=== PATIENT | male | born 1960 | race Caucasian/White ===

== ENCOUNTER 2020-02-10 07:13 | Outpatient (CLI) | payer OTHER, SELFPAY ==
[2020-02-10 08:27] LABS: LDL Cholesterol Direct 91 mg/dL
[2020-02-10 08:43] LABS: Hemoglobin A1C 11.4 % (<5.7)
[2020-02-10 08:50] LABS: Alanine Aminotransferase 26 U/L (4-50); Albumin Level 3.8 g/dL (3.5-5.1); Alkaline Phosphatase 124 U/L (38-126); Aspartate Amino Transferase 21 U/L (17-59); Bilirubin,Total 0.4 mg/dL (0.2-1.3); Blood Urea Nitrogen 14 mg/dL (9-20); Calcium 8.5 mg/dL (8.4-10.2); Carbon Dioxide 25 mmol/L (22-30); Chloride 103 mmol/L (98-107); Cholesterol 236 mg/dL (0-200); Estimated Glomerular Filt Rate > 60; Glucose 239 mg/dL (75-110); HDL Direct 27 mg/dL; Potassium 4.3 mmol/L (3.4-5.0); Sodium 135 mmol/L (137-145)
[2020-02-10 09:11] LABS: Triglycerides 668 mg/dL (<150)
== END 2020-02-10 07:14 | disposition home or self-care (01) ==
LOC: ANHLAB 07:15
PROVIDERS: PCP Emergency Medicine; Visit Provider Emergency Medicine
DX: E78.5 Hyperlipidemia, unspecified (principal); E11.9 Type 2 diabetes mellitus without complications
CPT/HCPCS: 36415; 80053; 80061; 83036

== ENCOUNTER 2020-04-06 07:25 | Outpatient (CLI) | payer OTHER, SELFPAY ==
[2020-04-06 10:08] LABS: Hemoglobin A1C 8.6 % (<5.7)
== END 2020-04-06 07:26 | disposition home or self-care (01) ==
PROVIDERS: PCP Emergency Medicine; Visit Provider Emergency Medicine
DX: E11.9 Type 2 diabetes mellitus without complications (principal)
CPT/HCPCS: 36415; 83036

== ENCOUNTER 2020-05-11 13:51 | Emergency (ER) | payer OTHER, SELFPAY ==
[2020-05-11 14:03] VITALS: BP 141/67; PULSE 120; RESP 16; TEMP 38; O2SAT 96
--- NOTE | 2020-05-11 14:13 | ED.SKABFB ---
HPI - Skin/Abscess/Foreign Bdy General Chief complaint: Skin/Abscess/Foreign Body Stated complaint: Boil in groin Time Seen by Provider: 05/11/20 14:13 Source: patient Mode of arrival: ambulatory Limitations: no limitations History of Present Illness HPI narrative: Lew Truong is a 60 yo male with a PMH of HTN, diabetes, tobacco abuse, who comes to [facility] care with a 100.4 , tachycardia, and blood pressure of 141/67. He has a very enlarged scrotum that is erythematous and tender, he is uncircumcised. Started on Wednesday and has gotten progressively more tender. Checked his blood sugar and days and he is barely able to sit down without pain Related Data Home Medications Medication Instructions Recorded Confirmed amlodipine 10 mg tablet 10 mg PO DAILY 07/14/19 05/11/20 aspirin 81 mg chewable tablet 81 mg PO DAILY 07/14/19 05/11/20 Allergies Allergy/AdvReac Type Severity Reaction Status Date / Time No Known Allergies Allergy Unverified 05/11/20 13:57 Review of Systems Review of Systems: Narrative: CONSTITUTIONAL: Has fever, chills, no sweats. EYES: Denies visual changes, redness, discharge. ENT: Denies rhinorrhea, congestion, sore throat, otalgia. CARDIOVASCULAR: Denies chest pain, palpitations, edema. RESPIRATORY: Denies dyspnea, wheezing, cough GASTROINTESTINAL: Denies abdominal pain, nausea, vomiting, diarrhea. GENITOURINARY: Denies dysuria, hematuria, abnormal discharge SKIN: Denies rash or itching. Enlarged painful scrotum, hard to sit down NEUROLOGIC: Denies numbness, or focal weakness. PSYCHIATRIC: Denies anxiety or depression. [facility] Past Medical History Medical History Diabetes mellitus HTN (hypertension) Hyperlipidemia Family History Family History Father Acute myocardial infarction Patient's father is , Onset Age: 68 Mother Patient's mother is , Onset Age: 84 Other Diabetes mellitus Social History Social History Smoking status: Heavy tobacco smoker Alcohol intake: never Comments At time of signature, I agree with nursing past medical, surgical, social and family history. There is no relevant family history pertinent to the presenting complaint. Exam Narrative: Exam Narrative: GENERAL: This is a well-nourished, well-developed patient, inmoderate distress. HEAD: normocephalic, atraumatic. EYES: Sclera clear/white. Vision is grossly intact. EARS: External ears normal, Hearing grossly intact. NOSE: External nose normal without nasal discharge, nares without redness, no rhinorrhea. THROAT: Mucous membranes moist, NECK: Neck supple, non-tender CARDIOVASCULAR: Regular rate and rhythm without murmurs, gallops, or rubs. RESPIRATORY: Clear to auscultation. Breath sounds equal bilaterally. No wheezes, rales, or rhonchi. GASTROINTESTINAL: Abdomen soft, non-tender, SKIN: warm, intact . Has very enlarged scrotum which is very painful to touch with left-sided hardened abscess-like area that runs up into the left inguinal area he is uncircumcised. NEURO: awake, alert, and oriented to person, place and time. There were no obvious focal neurologic abnormalities. Steady gait EXTREMITIES: Normal range of motion. BACK: Nontender without deformity Course Course Emergency Course: Comes to express care with scrotal pain On examination he is exquisitely tender warm to touch a lot of swelling on the left side of the scrotum and up in the inguinal area patient needs work-up with CT/ultrasound/blood work/IV antibiotics Transferred to [facility] Vital Signs Vital signs: Vital Signs Temperature 100.4 F H 05/11/20 14:03 Pulse Rate 120 H 05/11/20 14:03 Respiratory Rate 16 05/11/20 14:03 Blood Pressure 141/67 H 05/11/20 14:03 Pulse Oximetry 96 05/11/20 14:03 Temperature 1
== END 2020-05-11 14:25 | disposition short-term general hospital (02) ==
PROVIDERS: Emergency Provider Nurse Practitioner; PCP Emergency Medicine
DX: N49.2 Inflammatory disorders of scrotum (principal); F17.200 Nicotine dependence, unspecified, uncomplicated; E11.9 Type 2 diabetes mellitus without complications; I10 Essential (primary) hypertension; E78.5 Hyperlipidemia, unspecified
CPT/HCPCS: 99212; G0463

== ENCOUNTER 2020-05-11 14:39 | Inpatient (IN) | payer OTHER, SELFPAY ==
--- NOTE | ~2020-05-11 | CT_ITS ---
EXAMINATION: CT pelvis w con DATE: 05/11/2020 17:46 INDICATION: Scrotal edema, erythema TECHNIQUE: Computed tomography (CT) of the pelvis was performed with 100 cc Omnipaque 350 intravenous contrast. Automated exposure control and iterative reconstruction technique were employed. Exam dose : 1171.99 mGy-cm total exam DLP. COMPARISON: 02/23/2017 CT abdomen pelvis FINDINGS: Again noted is a wide ventral abdominal wall hernia containing nonobstructed nonstrangulate d small bowel. Diverticulosis of the descending and sigmoid colon; no CT evidence of diverticulitis. The urinary manpreet dder, seminal vesicles are unremarkable. Mild calcification of the prostate gland. There is some fluid density and fat stranding in the left pubic area, which may represent infection. Clinical correlation is advised. No pelvic mass lesion or adenopathy or ascites is noted. IMPRESSION: Nonspecific edema and fat stranding of the left pubic area Chronic wide mouth ventral abdominal wall hernia containing nonobstructed nonstrangulated small bowel Diverticulosis of the colon Reviewed, dictated and finalized at [facility] Reviewed, dictated and finalized at [facility]. IMPRESSION: Nonspecific edema and fat stranding of the left pubic area Chronic wide mouth ventral abdominal wall hernia containing nonobstructed nonst rangulated small bowel Diverticulosis of the colon
[2020-05-11 14:55] VITALS: BP 137/67; PULSE 120; RESP 24; TEMP 38.2; O2SAT 95
[2020-05-11 16:29] LABS: Hematocrit 39.4 % (42.0-52.0); Hemoglobin 13.3 g/dL (14.0-18.0); Mean Corpuscular HGB Conc 33.8 g/dl (32-36); Mean Corpuscular Hemoglobin 30.5 pg (26-34); Mean Corpuscular Volume 90.4 fl (80-100); Mean Platelet Volume 9.7 fl (7.4-10.4); Platelet Count Result 322 k/mm3 (150-375); Red Blood Count 4.36 M/mm3 (4.6-6.20); Red Cell Distribution Width 12.3 % (11.5-14.5); White Blood Count 23.1 K/mm3 (4.5-10.0)
--- NOTE | 2020-05-11 16:34 | ED.WOUNDLAC ---
HPI - Wound/Laceration General Chief Complaint: Wound/Laceration Stated Complaint: fever and wound in l groin Time Seen by Provider: 05/11/20 16:18 Source: patient Mode of arrival: ambulatory Limitations: no limitations History of Present Illness HPI narrative: This is a 60 year old male that presents to the ER for scrotal swelling x 3 days. Reports pain and redness to the area. He was seen at the urgent care for this and sent here for further evaluation. Also reports fever. Denies abdominal pain, dysuria, nausea, or vomiting. Related Data Home Medications Medication Instructions Recorded Confirmed amlodipine 10 mg tablet 10 mg PO DAILY 07/14/19 05/11/20 aspirin 81 mg chewable tablet 81 mg PO DAILY 07/14/19 05/11/20 metformin 1,000 mg PO BID 05/11/20 05/11/20 semaglutide [Ozempic] 0.5 mg SUBCUT WEEKLY 05/11/20 05/11/20 Allergies Allergy/AdvReac Type Severity Reaction Status Date / Time No Known Allergies Allergy Verified 05/11/20 16:11 Review of Systems Review of Systems: Narrative: CONSTITUTIONAL: Reports fever GASTROINTESTINAL: Denies abdominal pain, nausea, vomiting GENITOURINARY: Denies dysuria or hematuria. SKIN: Reports edema and erythema All systems reviewed & are unremarkable except as noted in HPI and below PMFSH Past Medical History Medical History (Updated 05/11/20 @ 23:06 by Tatum Perry PA-C) Diabetes mellitus HTN (hypertension) Hyperlipidemia Obstructive sleep apnea Tobacco abuse Surgical History Surgical History (Updated 05/11/20 @ 22:39 by Amparo Ryan NP) H/O inguinal hernia repair Hx of cholecystectomy Family History Family History (Updated 05/11/20 @ 22:41 by Amparo Ryan NP) Father Acute myocardial infarction Patient's father is , Onset Age: 68 Mother Patient's mother is , Onset Age: 84 when I asked a question about his mother's history the patient got very upset with me and asked me why We need to ask about his family history and that we did not need to bring his mother into this. In that his mother has nothing to do with his current condition. I had a very difficult time getting a family history from the patient. I explained was part of the history and physical. 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 And his is a durable power attorney lawyer. He does live with his . Patient was very agitated with me and did not want to answer the rest of the questions because he stated that he had already told staff about his social history in that I did need to know any further about it. Who was agitated that I was asking some questions and that it was not a my business. I explained again that it was for his history and physical. He explained that he had gone through all these questions already knees not going through it again at this time a night. Elizabeth is listed as his durable power attorney lawyer for healthcare and that his his . She is listed as the next of kin. I was not able to ask him about his alcohol use or if he had any children. Smoking packs per day: 1.5 Smoking cigarettes per day: 30.0 Years smoked: 40 Smoking pack-years: 60.00 Smoking status: Current every day smoker Tobacco type: cigarettes Alcohol intake: current Substance use: never Living arrangements: with family Occupation/Education: occupation Gender identity (if verbalized by the patient): Male Sexual Orientation (if Verbalized by the Patient): Straight or Heterosexual Spiritual care concerns: No Exam Narrative: Exam Narrative: GENERAL: Well-appearing, obese, and in no acute distress. HEAD: Normocephalic, atraumatic. EYES: EOMI. CHEST: Clear to auscultation. No respiratory distress. No wheezes rales or rhonchi HEART: Regular
[2020-05-11 16:40] LABS: Lactic Acid Reflex 1.5 mmol/L (0.7-2.1)
[2020-05-11 16:44] LABS: INR 1.2; Prothrombin Time 14.4 Seconds (11.1-14.7)
[2020-05-11 16:45] LABS: Partial Thromboplastin Time 30.3 SECONDS (22.3-36.8)
[2020-05-11 17:01] LABS: Alanine Aminotransferase 30 U/L (4-50); Albumin Level 3.5 g/dL (3.5-5.1); Alkaline Phosphatase 121 U/L (38-126); Anion Gap 9 mmol/L (8-16); Aspartate Amino Transferase 22 U/L (17-59); Band Neutrophils Percent 2 % (0-6); Bilirubin,Total 0.5 mg/dL (0.2-1.3); Blood Urea Nitrogen 13 mg/dL (9-20); Calcium 8.7 mg/dL (8.4-10.2); Carbon Dioxide 24 mmol/L (22-30); Chloride 101 mmol/L (98-107); Estimated CRCL calculation 133 ml/min; Estimated Glomerular Filt Rate > 60; Glucose 200 mg/dL (75-110); Lymphocytes Absolute Manual 4.38 K/mm3 (1.1-4.5); Monocytes Absolute Manual 1.38 K/mm3 (0.1-0.90); Monocytes Percent Manual 6 % (3-9); Neutrophils Absolute Manual 17.32 K/mm3 (1.3-6.7); Neutrophils Percent Manual 73 % (46-73); Sodium 134 mmol/L (137-145); Total Cells Counted 100
[2020-05-11 17:02] LABS: Anisocytosis 1+ (NORMAL); Platelet Estimate Adequate (Adequate)
[2020-05-11 17:14] LABS: Hemoglobin A1C 9.1 % (<5.7)
[2020-05-11] MEDS: SODIUM CHLORIDE 0.9% IV 1,000 ML 999 ML IV CONT (17:22)
[2020-05-11 17:48] LABS: CRP 16.2 mg/dL (<1.0)
[2020-05-11 18:33] VITALS: BP 126/73; PULSE 100; RESP 20; TEMP 37.7; O2SAT 95
[2020-05-11 20:12] VITALS: BP 126/74; PULSE 92; RESP 20; TEMP 36.9; O2SAT 97
[2020-05-11 20:16] VITALS: BP 126/74; PULSE 95; RESP 20; TEMP 36.6; O2SAT 96
[2020-05-11 20:29] VITALS: BMI 42.9
--- NOTE | 2020-05-11 20:30 | ADMGEN ---
This patient, Lew Truong, was admitted to Medical Room 342-01. Patient/family oriented to hospital policies and general routines including ID bracelet, bed and alarms, visiting hours, pain management, procedures, bathroom and other care routines, personal items, smoking policy, room service/diet, and visiting hours. Valuables list has been completed. Information on how to activate the Rapid Response Team has been discussed. Patient/Family are encouraged to report perceived risks to care and to ask questions if they do not understand what they are told or what they should do.
[2020-05-11 20:34] VITALS: BP 127/86; PULSE 94; RESP 18; TEMP 36.4; O2SAT 94
[2020-05-11 21:26] LABS: Glucose Point of Care 191 (65-105)
--- NOTE | 2020-05-11 22:15 | PM.IMHP ---
H&P: HPI History of Present Illness Date/Time: 05/11/20 22:15 Chief complaint: Scrotal cellulitis Narrative: Lew Truong is a 60 year old male who has been having scrotal pain redness and edema for approximately 3 days. 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 He has not had anything like this in the past. There is a lot of pressure there and he did not notice any drainage. He has not tried anything [id number]. He said he is having some chills. Patient's temperature was up to 38.2? C. which is 100.8? degrees F. the patient had nonspecific edema and fat stranding a left pubic area. Chronic wide-mouth ventral abdominal wall hernia containing nonobstructive non strangulated small bowel. Diverticulosis of the colon. He has mild calcification of the prostate gland. The patient was started on vancomycin. He is diabetic. His white count was noted to be 23.1. His H&H is 13.3 and 39.4. The patient was very irritated with me and was very upset that I was reviewing this his chart with him. He is not feeling well and has chills. The patient stated the ER told him that he would only be staying overnight. I explained that he is admitted inpatient and that this would take longer to heal and that he needs IV antibiotics at this time. The patient tells me that if he is not released by tomorrow he will walk out on his own. I explained that he can become very septic and from sepsis. The patient stated that he has been like to and he is upset with all the medical helped personal caregiver. He does not understand why he has to be asked so many questions and it is none of our business what his family history is. I attempted to review his history and physical and explained my rationale for doing this history and physical. The patient was very upset that I had to ask him so many questions. He stated that he has signed out against medical advice in the past and has threatened to do so now. The patient is very upset with me at this point. Patient's heart rate is in the 90s and his blood pressure is 127 over to 86 and he has a elevated leukocytosis which fits the criteria for sepsis. Patient stated that he does not care that he is leaving tomorrow regardless. I explained that I could not promise him that he would be able to leave because he has sepsis and is very ill. Patient stated that he does not know what his family history has to do with any of his paperwork and does not understand why he has to talk about his parents at this time of the night. Patient was very irritated and agitated. Date of service 05/11/2020. Review of Systems Review of Systems: Narrative: The patient is very irritated and does not want to answer questions at this time the night. All systems reviewed & are unremarkable except as noted in HPI and below Constitutional: Constitutional: Reports as per HPI and Reports no additional constitutional complaints Eyes: Eyes: Reports as per HPI and Reports no additional eye complaints ENT: Reports system reviewed and no additional complaints, except as documented and Reports Normal hearing present Cardiovascular: Cardiovascular: Reports no additional cardiovascular complaints Respiratory: Respiratory: Reports no additional respiratory complaints and Reports no additional respiratory complaints Gastrointestinal: Gastrointestinal: Reports as per HPI and Reports no additional gastrointestinal complaints Musculoskeletal: Musculoskeletal: Reports no additional musculoskeletal complaints Integumentary/Breasts: Skin/Breast: Reports system reviewed and no additional complaints, except as docu and Reports as per HPI Neurologic: Reports system reviewed and no additional complaints, except as documented, Reports as per HPI and Reports Normal hearing present Psychiatric: Psychiatric: Reports no additional psychiatric complaints and Reports as per HPI Endocrine: Endocrine:
[2020-05-11 22:25] VITALS: RESP 20
[2020-05-11] MEDS: MELATONIN 3 MG TABLET PO (23:14)
[2020-05-11 23:26] LABS: Add Urine Microscopic? YES; Appearance Urine Clear (Clear); Bacteria Urine Trace /hpf; Bilirubin Urine Negative (Negative); Blood Urine 1+ (Negative); Color Urine Yellow (Yellow); Glucose Urine UA 2+ mg/dL (Negative); Ketones Urine Negative (Negative); Leukocyte Esterase Ur Negative LEU/UL (Negative); Mucus Urine Rare /lpf; Nitrate Urine Negative (Negative); Protein Urine Negative (Negative); RBC Urine 0-2 /hpf (0-2); Urobilinogen Urine Negative mg/dL (<2.0); WBC Urine 0-3 /hpf
[2020-05-11 23:30] LABS: Specific Grav Ur 1.032 (1.001-1.035)
[2020-05-12] VITALS (12 sets, daily range): BP systolic 111–139; BP diastolic 50–79; PULSE 90–102; RESP 14–20; TEMP 35.7–37.2; O2SAT 94–97
[2020-05-12] MEDS: HYDROcodone/acetaminophen (*CRX) 5-325 MG TABLET 1 TAB PO (03:13)
[2020-05-12 05:33] LABS: Basophils Absolute Auto 0.1 K/mm3 (0.0-0.1); Basophils Percent Auto 0.3 % (0.2-1.2); Eosinophils Absolute Auto 0.1 K/mm3 (0-0.3); Eosinophils Percent Auto 0.5 % (0-4.4); Hematocrit 36.5 % (42.0-52.0); Hemoglobin 12.3 g/dL (14.0-18.0); Immature Granulocyte Absolute 0.15 K/mm3 (0.00-0.031); Immature Granulocyte Percent A 0.8 % (0-0.5); Lymphocytes Absolute Auto 3.45 K/mm3 (0.9-3.2); Lymphocytes Percent Auto 17.6 % (18.3-44.2); Mean Corpuscular HGB Conc 33.7 g/dl (32-36); Mean Corpuscular Hemoglobin 30.9 pg (26-34); Mean Corpuscular Volume 91.7 fl (80-100); Mean Platelet Volume 10.3 fl (7.4-10.4); Monocytes Absolute Auto 1.9 K/mm3 (0.1-0.6); Monocytes Percent Auto 9.4 % (2.6-8.5); Neutrophils Percent Auto 71.4 % (45.5-73.1); Platelet Count Result 314 k/mm3 (150-375); Red Blood Count 3.98 M/mm3 (4.6-6.20); Red Cell Distribution Width 12.5 % (11.5-14.5); White Blood Count 19.6 K/mm3 (4.5-10.0)
[2020-05-12 06:00] LABS: Alanine Aminotransferase 25 U/L (4-50); Albumin Level 3.2 g/dL (3.5-5.1); Alkaline Phosphatase 127 U/L (38-126); Anion Gap 6 mmol/L (8-16); Aspartate Amino Transferase 25 U/L (17-59); Bilirubin,Total 0.6 mg/dL (0.2-1.3); Blood Urea Nitrogen 8 mg/dL (9-20); Calcium 8.2 mg/dL (8.4-10.2); Carbon Dioxide 26 mmol/L (22-30); Chloride 102 mmol/L (98-107); Estimated CRCL calculation 154 ml/min; Estimated Glomerular Filt Rate > 60; Glucose 232 mg/dL (75-110); Magnesium 1.8 mg/dL (1.6-2.3); Potassium 3.4 mmol/L (3.4-5.0); Sodium 134 mmol/L (137-145)
[2020-05-12 06:06] LABS: Lactic Acid Reflex 0.9 mmol/L (0.7-2.1)
[2020-05-12 07:18] LABS: Hemoglobin A1C 9.1 % (<5.7)
--- NOTE | 2020-05-12 07:44 | WPDURCON ---
Assessment and Plan Additional Plan Scrotal/perineal junction abscess with purulent drainage. I discussed the need for an incision and drainage with the patient to ensure full relief of the infection. I have reviewed his CT scan, and there was no evidence of gangrene. He has no evidence of tissue loss or gangrene on his current exam. I explained there will be an open area that will need packing. We discussed he will likely need to stay overnight after the procedure to make sure there is good response to the drainage. He is in agreement with the plan for the procedure. Urology Consult Note HPI Date Seen: 05/12/20 Requesting Physician: Jefferson Brian PA-C Primary Care Provider: Jamil Garsia MD Consult Narrative Narrative: Lew Truong is a 60 year old male with scrotal swelling. He came to the ER yesterday afternoon. He has been having left scrotal pain. He had a CT scan showing non-specific inflammation, no gas, and no evidence of tissue breakdown. He started having pus drain from the left side of the perineum early this morning, and urology was called at that time. Review of Systems Review of Systems: All systems reviewed & are unremarkable except as noted in HPI and below PMFSH Past Medical History Medical History (Updated 05/12/20 @ 00:00 by Estelita Beltre) Diabetes mellitus HTN (hypertension) Hyperlipidemia Obstructive sleep apnea Tobacco abuse Surgical History Surgical History (Updated 05/11/20 @ 22:39 by Amparo Ryan NP) H/O inguinal hernia repair Hx of cholecystectomy Family History Family History (Updated 05/11/20 @ 22:41 by Amparo Ryan NP) Father Acute myocardial infarction Patient's father is , Onset Age: 68 Mother Patient's mother is , Onset Age: 84 when I asked a question about his mother's history the patient got very upset with me and asked me why We need to ask about his family history and that we did not need to bring his mother into this. In that his mother has nothing to do with his current condition. I had a very difficult time getting a family history from the patient. I explained was part of the history and physical. 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 And his is a durable power privacy attorney. He does live with his . Patient was very agitated with me and did not want to answer the rest of the questions because he stated that he had already told staff about his social history in that I did need to know any further about it. Who was agitated that I was asking some questions and that it was not a my business. I explained again that it was for his history and physical. He explained that he had gone through all these questions already knees not going through it again at this time a night. Elizabeth is listed as his durable power privacy attorney for healthcare and that his his . She is listed as the next of kin. I was not able to ask him about his alcohol use or if he had any children. Smoking packs per day: 1.5 Smoking cigarettes per day: 30.0 Years smoked: 40 Smoking pack-years: 60.00 Smoking status: Current every day smoker Tobacco type: cigarettes Alcohol intake: current Substance use: never Living arrangements: with family Occupation/Education: occupation Gender identity (if verbalized by the patient): Male Sexual Orientation (if Verbalized by the Patient): Straight or Heterosexual Spiritual care concerns: No Meds Home Medications and Allergies Home Medications Medication Instructions Recorded Confirmed Type amlodipine 10 mg tablet 10 mg PO DAILY 07/14/19 05/11/20 History aspirin 81 mg chewable tablet 81 mg PO DAILY 07/14/19 05/11/20 History losartan 50 mg tablet 50 mg PO DAILY #90 tablet 02
[2020-05-12 08:08] LABS: Glucose Point of Care 229 (65-105)
[2020-05-12] MEDS: INSULIN ASPART (*BKC) 100 UNITS/ML SUB-Q ×3 (08:22→16:25)
[2020-05-12] MEDS: LOSARTAN POTASSIUM 50 MG TABLET PO (09:10)
[2020-05-12] MEDS: amLODIPine BESYLATE 5 MG TABLET 10 MG PO (09:10)
--- NOTE | 2020-05-12 09:27 | WPDANESEPP ---
Anes - Eval Pre Procedure Procedure: Operation Date: 05/12/20 09:20 Proposed Procedures p I&D Scrotal Abscess - Yordan Ochoa MD Date/Time: 05/12/20 09:27 Preop Diagnosis: scrotal abscess Pre Op Diagnosis: Scrotal cellulitis Patient Data Age: 60 Gender: M Height: 5 ft 9 in Weight: 131.9 kg Last Vital Signs Temp 36.3 C L 05/12/20 06:00 Pulse 90 05/12/20 06:00 Resp 18 05/12/20 06:00 BP 134/71 05/12/20 06:00 Pulse Ox 95 05/12/20 06:00 Allergies Allergy/AdvReac Type Severity Reaction Status Date / Time No Known Allergies Allergy Verified 05/11/20 16:11 Home Medications Medication Instructions Recorded Confirmed Type amlodipine 10 mg tablet 10 mg PO DAILY 07/14/19 05/11/20 History aspirin 81 mg chewable tablet 81 mg PO DAILY 07/14/19 05/11/20 History losartan 50 mg tablet 50 mg PO DAILY #90 tablet 09/05/19 05/11/20 Rx metformin 1,000 mg PO BID 05/11/20 05/11/20 History semaglutide [Ozempic] 0.5 mg SUBCUT WEEKLY 05/11/20 05/11/20 History Laboratory Tests 05/11/20 05/11/20 05/11/20 16:20 16:22 16:22 WBC 23.1 K/mm3 H K/mm3 (4.5-10.0) RBC 4.36 M/mm3 L M/mm3 (4.6-6.20) Hgb 13.3 g/dL L g/dL (14.0-18.0) Hct 39.4 % L % (42.0-52.0) MCV 90.4 fl fl (80-100) MCH 30.5 pg pg (26-34) MCHC 33.8 g/dl g/dl (32-36) RDW 12.3 % % (11.5-14.5) Plt Count 322 k/mm3 k/mm3 (150-375) MPV 9.7 fl fl (7.4-10.4) Immature Gran % (Auto) Not Reportable Neut % (Auto) Not Reportable Lymph % (Auto) Not Reportable [place] % (Auto) Not Reportable Eos % (Auto) Not Reportable Baso % (Auto) Not Reportable Lymph # (Auto) Not Reportable [place] # (Auto) Not Reportable Eos # (Auto) Not Reportable Baso # (Auto) Not Reportable Abs Immat Gran (auto) Not Reportable Absolute Neuts (auto) Not Reportable Absolute Nucleated RBC Not Reportable Total Counted 100 Neutrophils % (Manual) 73 % % (46-73) Band Neutrophils % 2 % % (0-6) Lymphocytes % (Manual) 19.0 % % (18-44) Monocytes % (Manual) 6 % % (3-9) Nucleated RBC % Not Reportable Abs Neuts (Manual) 17.32 K/mm3 H K/mm3 (1.3-6.7) Abs Lymphs (Manual) 4.38 K/mm3 K/mm3 (1.1-4.5) Abs Monocytes (Manual) 1.38 K/mm3 H K/mm3 (0.1-0.90) Platelet Estimate Adequate (Adequate) Anisocytosis 1+ (NORMAL) PT 14.4 Seconds Seconds (11.1-14.7) INR 1.2 APTT 30.3 SECONDS SECONDS (22.3-36.8) Sodium Potassium Chloride Carbon Dioxide Anion Gap BUN Creatinine Estim Creat Clear Calc Estimated GFR Glucose POC Capillary Glucose Hemoglobin A1c 9.1 % H % (<5.7) Lactic Acid Calcium Magnesium Ferritin Total Bilirubin AST ALT Alkaline Phosphatase C-Reactive Protein Total Protein Albumin Urine Color Urine Appearance Urine pH Ur Specific [place] Urine Protein Urine Glucose (UA) Urine Ketones Ur Blood (Man) Urine Nitrate Urine Bilirubin Urine Urobilinogen Leukocyte Esterase Rfl Urine RBC Urine WBC Urine Bacteria Urine Mucus 05/11/20 05/11/20 05/11/20 16:22 16:22 20:47 WBC RBC Hgb Hct MCV MCH MCHC RDW Plt C
--- NOTE | 2020-05-12 09:56 | PM.IMPN ---
Progress Note: A&P Assessment and Plan (1) Sepsis: Code(s): A41.9 - Sepsis, unspecified organism Status: Acute Assessment and Plan: Scrotal cellulitis as source and meeting SIRS criteria with leukocytosis, tachycardia. Continue current treatment for cellulitis of scrotum. See below (2) Abscess of skin or subcutaneous tissue: Qualifiers: Site of cutaneous abscess: other site Qualified Code(s): L02.818 - Cutaneous abscess of other sites Code(s): L02.91 - Cutaneous abscess, unspecified Status: Inactive Assessment and Plan: As per, antibiotic stewardship, patient started on Imipenem and Vancomycin. Dr. Ochoa evaluated patient and will be taking patient to OR today for I&D. BCx pending WBC downtrending to 19.6k. No evidence of Rita gangrene at this moment Continue imipenem and vancomycin I&D per Dr. Ochoa today; Appreciate Urology recommendations Monitor for improvement (3) Hyperlipidemia: Code(s): E78.5 - Hyperlipidemia, unspecified Status: Chronic Assessment and Plan: Patient refuses to take any medication for cholesterol. Diet and exercise recommended. Follow up with PCP (4) HTN (hypertension): Code(s): I10 - Essential (primary) hypertension Status: Chronic Assessment and Plan: BP reviewed and stable at 130s sys this morning. continue home antihypertensives Monitor (5) Diabetes mellitus: Qualifiers: Diabetes mellitus complication detail: with other skin complication Diabetes mellitus complication status: with skin complications Diabetes mellitus longterm insulin use: without longterm use Diabetes mellitus type: type 2 Qualified Code(s): E11.628 - Type 2 diabetes mellitus with other skin complications Code(s): E11.9 - Type 2 diabetes mellitus without complications Status: Chronic Assessment and Plan: A1c 9.1. BGL 229 today Accuchecks ACHS, hypoglycemia protocol, correctional insulin, diabetic diet Hold metformin and Ozempic is non formulary Will need follow up with PCP for further management given elevated A1c Monitor (6) Tobacco abuse: Code(s): Z72.0 - Tobacco use Status: Acute Assessment and Plan: Nicotine patch offered but declined at this time. Smoking cessation education (7) Obstructive sleep apnea: Code(s): G47.33 - Obstructive sleep apnea (adult) (pediatric) Status: Acute Assessment and Plan: CPAP overnight if he does not refuse Subjective Date/time seen: 05/12/20 09:56 Interval history: Patient is a 60 yo M with DM, HTN, LISA and tobacco abuse who is seen in follow up for scrotal cellulitis. Patient states he feels okay today. Pain in his scrotum, but reasonable today. Main complaint is back pain from lying in the bed. He notes his scrotum is now draining. He is preparing to go down to OR for I&D per Dr. Ochoa. He notes the swelling in scrotum improved a little overnight. No f/c/s overnight. Overall improvement from yesterday. No other complaints. Denies current subjective f/c/s, headaches,cp/palpitations, sob/cough, n/v/d/c, abd pain, changes in BMs, dysuria, hematuria, cloudy urine, calf pain/swelling. Review of Systems Review of Systems: All systems reviewed & are unremarkable except as noted in HPI and below Exam Narrative: Exam Narrative: General: Patient resting supine in bed in no acute distress. Nursing in room at time of visit HEENT: Normocephalic, EOMI, oral mucosa moist. Cardiovascular: Rate and rhythm are regular. No notable murmur, rub, or gallop. Respiratory: Lungs clear to auscultation in anterolateral lung quinones; diminished breath sounds. Non-l
--- NOTE | 2020-05-12 10:22 | WPDANESEFPP ---
Anes - Eval Final PreProcedure Day of Procedure 05/12/20 10:22 Patient weight: morbidly obese Heart: regular rate and rhythm Lungs: clear to auscultation and normal air movement Airway: Mallampati scale class II Neurological: alert and oriented Last oral intake: >/= 8 hours ASA classification: III Emergent: yes Anesthetic plan: proceed Anesthesia type and monitoring: general LMA and standard monitoring Informed Consent: The patient's anesthetic plan and its attendant risks and benefits were discussed with the patient/family/POA. Questions were solicited and answers provided to the satisfaction of the patient/family/POA.
--- NOTE | 2020-05-12 10:40 | PM.PROC ---
Procedure Note - Detailed Date of procedure: 05/12/20 Pre-op diagnosis: Scrotal cellulitis Post-op diagnosis: other (left sided scrotal abscess with early gangrene) Procedure performed: left scrotal debridement and abscess drainage Description of procedure: Indication: The patient has a scrotal cellulitis that started to drain pus earlier this morning. Procedure Report: The patient was brought to the operating room in stable condition. He was placed under general anesthesia and prepped and draped in lithotomy position. The area of purulence was visualized and opened. I probed with a hemostat and found the main pocked of pus. I opened the incision further over this area. Culture was sent. I encountered a small amount of necrotic tissue which was removed. The total size of the opening was approximately 5cm. I irrigated the abscess cavity, and placed a Kerlix packing. Bandages were placed. The patient tolerated the procedure well. He was brought to the recovery room in stable condition. Anesthesia: GETA Surgeon: Yordan Ochoa MD Estimated blood loss (mL): 20 IV fluids (mL): 200 Drains: No Packing: Yes Pathology: other (wound culture; necrotic tissue for culture) Complications: No immediate complications Condition: stable Disposition: PACU Findings: necrotic tissue at base of abscess cavity
[2020-05-12 10:50] LABS: Glucose Point of Care 244 (65-105)
[2020-05-12] MEDS: LACTATED RINGERS 1,000 ML 30 ML IV CONT (10:55)
[2020-05-12] MEDS: fentaNYL CITRATE INJ (*CRX) 100 MCG/2 ML VIAL 25 MCG IV PUSH ×2 (11:02→11:15)
[2020-05-12 12:14] LABS: Glucose Point of Care 209 (65-105)
[2020-05-12] MEDS: ASPIRIN 81 MG CHEWABLE TABLET PO (13:13)
[2020-05-12] MEDS: NICOTINE (*PBKC) 21 MG PATCH 1 PATCH TRANSDERM (13:13)
[2020-05-12 16:38] LABS: Glucose Point of Care 225 (65-105)
[2020-05-12] MEDS: MELATONIN 3 MG TABLET PO (20:07)
[2020-05-12 21:18] LABS: Glucose Point of Care 269 (65-105)
[2020-05-13 00:46] VITALS: BP 127/56
[2020-05-13 04:46] VITALS: O2SAT 93
[2020-05-13 04:58] VITALS: BP 132/74; PULSE 90; RESP 16; TEMP 36.1; O2SAT 97
[2020-05-13 05:44] LABS: Basophils Absolute Auto 0.1 K/mm3 (0.0-0.1); Basophils Percent Auto 0.5 % (0.2-1.2); Eosinophils Absolute Auto 0.2 K/mm3 (0-0.3); Eosinophils Percent Auto 1.7 % (0-4.4); Hematocrit 35.7 % (42.0-52.0); Immature Granulocyte Percent A 0.7 % (0-0.5); Lymphocytes Absolute Auto 3.37 K/mm3 (0.9-3.2); Lymphocytes Percent Auto 24.7 % (18.3-44.2); Mean Corpuscular HGB Conc 33.6 g/dl (32-36); Mean Corpuscular Hemoglobin 30.4 pg (26-34); Mean Corpuscular Volume 90.4 fl (80-100); Mean Platelet Volume 9.5 fl (7.4-10.4); Monocytes Absolute Auto 1.3 K/mm3 (0.1-0.6); Monocytes Percent Auto 9.2 % (2.6-8.5); Neutrophils Absolute Auto 8.6 K/mm3 (1.3-6.7); Neutrophils Percent Auto 63.2 % (45.5-73.1); Platelet Count Result 316 k/mm3 (150-375); Red Blood Count 3.95 M/mm3 (4.6-6.20); Red Cell Distribution Width 12.2 % (11.5-14.5); White Blood Count 13.7 K/mm3 (4.5-10.0)
[2020-05-13 06:20] LABS: Alanine Aminotransferase 27 U/L (4-50); Albumin Level 3.3 g/dL (3.5-5.1); Alkaline Phosphatase 107 U/L (38-126); Anion Gap 7 mmol/L (8-16); Aspartate Amino Transferase 18 U/L (17-59); Bilirubin,Total 0.4 mg/dL (0.2-1.3); Blood Urea Nitrogen 8 mg/dL (9-20); Calcium 8.1 mg/dL (8.4-10.2); Carbon Dioxide 26 mmol/L (22-30); Chloride 104 mmol/L (98-107); Estimated CRCL calculation 154 ml/min; Estimated Glomerular Filt Rate > 60; Glucose 210 mg/dL (75-110); Magnesium 2.1 mg/dL (1.6-2.3); Potassium 3.7 mmol/L (3.4-5.0); Sodium 137 mmol/L (137-145)
[2020-05-13 06:42] LABS: Vancomycin Trough 7.9 ug/mL (10.0-20.0)
[2020-05-13 07:58] LABS: Glucose Point of Care 219 (65-105)
[2020-05-13] MEDS: INSULIN ASPART (*BKC) 100 UNITS/ML SUB-Q (07:59)
[2020-05-13] MEDS: NICOTINE (*PBKC) 21 MG PATCH 1 PATCH TRANSDERM (08:01)
[2020-05-13] MEDS: LOSARTAN POTASSIUM 50 MG TABLET PO (08:01)
[2020-05-13] MEDS: ASPIRIN 81 MG CHEWABLE TABLET PO (08:01)
[2020-05-13] MEDS: amLODIPine BESYLATE 5 MG TABLET 10 MG PO (08:01)
[2020-05-13] MEDS: AMOXICILLIN/CLAVULANATE K 875-125 MG TAB 1 TABLET PO (09:21)
--- NOTE | 2020-05-13 10:04 | WPDANESPN ---
Anes - Prog Note Post-Op Date/Time: 05/13/20 10:04 Cardiovascular status: normal Respiratory status: normal Airway patency: baseline Mental status: baseline Post-Op hydration status: normal Vital Signs: Last Vital Signs Temp 36.1 C L 05/13/20 04:58 Pulse 90 05/13/20 04:58 Resp 16 05/13/20 04:58 BP 132/74 05/13/20 04:58 Pulse Ox 97 05/13/20 04:58 Pain Score (VAS): 2 I/O: Intake & Output 05/12/20 05/13/20 05/13/20 23:59 07:59 15:59 Intake Total 1110 850 480 Output Total 2350 Balance 1110 -1500 480 Laboratory Tests 05/13/20 05:22 05/13/20 05:22 05/12/20 05/12/20 05/12/20 10:48 12:10 16:23 WBC RBC Hgb Hct MCV MCH MCHC RDW Plt Count MPV Immature Gran % (Auto) Neut % (Auto) Lymph % (Auto) [place] % (Auto) Eos % (Auto) Baso % (Auto) Lymph # (Auto) [place] # (Auto) Eos # (Auto) Baso # (Auto) Abs Immat Gran (auto) Absolute Neuts (auto) Absolute Nucleated RBC Nucleated RBC % Sodium Potassium Chloride Carbon Dioxide Anion Gap BUN Creatinine Estim Creat Clear Calc Estimated GFR Glucose POC Capillary Glucose 244 H 209 H 225 H Calcium Magnesium Total Bilirubin AST ALT Alkaline Phosphatase Total Protein Albumin Vancomycin Trough 05/12/20 05/13/20 05/13/20 20:06 05:22 05:22 WBC 13.7 H RBC 3.95 L Hgb 12.0 L Hct 35.7 L MCV 90.4 MCH 30.4 MCHC 33.6 RDW 12.2 Plt Count 316 MPV 9.5 Immature Gran % (Auto) 0.7 H Neut % (Auto) 63.2 Lymph % (Auto) 24.7 [place] % (Auto) 9.2 H Eos % (Auto) 1.7 Baso % (Auto) 0.5 Lymph # (Auto) 3.37 H [place] # (Auto) 1.3 H Eos # (Auto) 0.2 Baso # (Auto) 0.1 Abs Immat Gran (auto) 0.10 H Absolute Neuts (auto) 8.6 H Absolute Nucleated RBC 0.0 Nucleated RBC % 0.0 Sodium 137 Potassium 3.7 Chloride 104 Carbon Dioxide 26 Anion Gap 7 L BUN 8 L Creatinine 0.60 L Estim Creat Clear Calc 154 Estimated GFR > 60 Glucose 210 H POC Capillary Glucose 269 H Calcium 8.1 L Magnesium 2.1 Total Bilirubin 0.4 AST 18 ALT 27 Alkaline Phosphatase 107 Total Protein 6.0 L Albumin 3.3 L Vancomycin Trough 05/13/20 05/13/20 05:22 07:54 WBC RBC Hgb Hct MCV MCH MCHC RDW Plt Count MPV Immature Gran % (Auto) Neut % (Auto) Lymph % (Auto) [place] % (Auto) Eos % (Auto) Baso % (Auto) Lymph # (Auto) [place] # (Auto) Eos # (Auto) Baso # (Auto) Abs Immat Gran (auto) Absolute Neuts (auto) Absolute Nucleated RBC Nucleated RBC % Sodium Potassium Chloride Carbon Dioxide Anion Gap BUN Creatinine Estim Creat Clear Calc Estimated GFR Glucose POC Capillary Glucose 219 H Calcium Magnesium Total Bilirubin AST ALT Alkaline Phosphatase Total Protein Albumin Vancomycin Trough 7.9 L Microbiology 05/12/20 10:25 Abscess Anaerobic Culture - Preliminary 05/12/20 10:25 Abscess Aerobic Culture - Preliminary Group B Streptococcus isolated 05/12/20 10:32 Surgery Anaerobic Culture - Preliminary 05/12/20 10:32 Surgery Aerobic Culture - Preliminary Group B Streptococcus isolated 05/11/20 16:22 Blood Blood Culture - Preliminary 05/11/20 16:22 Blood Blood Culture - Preliminary Post-procedural complaints: none Patient Feedback: Patient satisfied with anesthetic care.
[2020-05-13 11:33] LABS: Glucose Point of Care 191 (65-105)
--- NOTE | 2020-05-13 11:41 | WPDUROPN2 ---
Progress Note: A&P Assessment and Plan (1) Sepsis: Code(s): A41.9 - Sepsis, unspecified organism Status: Acute Assessment and Plan: Patient ok to be discharged home on oral antibiotics when stable, x 10 days. Will plan to follow up in the office next week. Continue daily dressing changes and packing and PRN. Continue to pack wound until it closes. (2) Cellulitis of scrotum: Code(s): N49.2 - Inflammatory disorders of scrotum Status: Acute Subjective Subjective Date/Time Seen: 05/13/20 11:41 POD #1 scrotal debridement and abscess drainage Patient doing well today, WBC is down to 13.7 from 19.6, wound draining. Afebrile. Review of Systems Cardiovascular: Cardiovascular: Denies chest pain Respiratory: Respiratory: Reports no additional respiratory complaints Gastrointestinal: Gastrointestinal: Denies abdominal pain, Denies nausea and Denies vomiting Genitourinary: Genitourinary: Denies dysuria, Reports scrotal swelling and Denies testicular pain Exam Resp: Effort & Inspection: normal respiratory effort Cardio: Rate: regular rate GI: GI Palp: Yes Soft to palpation and No Tenderness to palpation present (GI) : Scrotum: no ecchymosis, erythematous and other (icision draining purulent/bloody drainage, wound bed is pink, dressing on) Extrem: General: no edema Objective Data Vital Signs Vital Signs: Vital Signs - 24 hr 05/12/20 12:00 05/12/20 12:36 05/12/20 13:25 Temperature 97.6 F 96.2 F L 99.0 F Pulse Rate 94 94 96 Respiratory Rate 20 Blood Pressure 126/66 139/79 112/59 L Pulse Oximetry 95 96 96 05/12/20 14:00 05/12/20 18:00 05/12/20 20:14 Temperature 98.2 F 98 F 97.9 F Pulse Rate 99 102 H 95 Respiratory Rate 20 18 18 Blood Pressure 137/50 L 111/59 L 127/56 L Pulse Oximetry 95 95 94 05/13/20 00:46 05/13/20 04:46 05/13/20 04:58 Temperature 97 F L Pulse Rate 90 Respiratory Rate 16 Blood Pressure 127/56 L 132/74 Pulse Oximetry 93 97 Intake/Output Intake/Output: Intake & Output 10/04/2105/11/20 05/12/20 05/13/20 23:59 23:59 23:59 23:59 Intake Total 1700 3025 1830 Output Total 200 2350 Balance 1700 2825 -520 Meds/Results Medications: Active Medications Generic Name Dose Route Start Last Admin Trade Name Freq PRN Reason Stop Dose Admin Hydrocodone Bitart/Acetaminophen 1 tab 05/11/20 22:44 05/12/20 03:13 Hydrocodone/Acetaminophen (*Crx) 5-325 Mg Tablet PO 1 tab Q4H PRN Administration Pain Rated 4-6 Amlodipine Besylate 10 mg 05/12/20 09:00 05/13/20 08:01 Amlodipine Besylate 5 Mg Tablet PO 10 mg DAILY VERONICA Administration Amoxicillin/Clavulanate Potassium 1 tablet 05/13/20 09:00 05/13/20 09:21 Amoxicillin/Clavulanate K 875-125 Mg Tab PO 1 tablet Q12HR VERONICA Administration Aspirin 81 mg 05/12/20 08:00 05/13/20 08:01 Aspirin 81 Mg Chewable Tablet PO 81 mg DAILY@0800 VERONICA Administration Dextrose 12.5 gm 05/11/20 22:37 Dextrose 50% 25 Gm/50 Ml Syringe IV PUSH PRN PRN Hypoglycemia Protocol Fentanyl Citrate 25 mcg 05/12/20 10:23 05/12/20 11:15 Fentanyl Citrate Inj (*Crx) 100 Mcg/2 Ml Vial IV PUSH 25 mcg Q2M PRN Administration Pain Glucagon 1 mg 05/11/20 22:37 Glucagon For Inj 1 Mg Vial IM PRN PRN Hypoglycemia Protocol Glucose 15 gm 05/11/20 22:37 Glucose Oral Gel 15 Gm Of Glucse In 37.5 Gm Tube PO PRN PRN Hypoglycemia Protocol Dextrose 1,000 mls @ 100 mls/hr 05/11/20 22:37 Dextrose 5% 1,000 Ml IVPB PRN PRN Hypoglycemia Protocol Insulin Aspart 2 - 5 units 05/12/20 08:00 05/13/20 11:39 Insulin Aspart (*Bkc) 100 Units/Ml SUB-Q Not Given TIDWM VERONICA Protocol Lorazepam 0.5 mg 05/11/20 22:46 Lorazepam Inj (*Crx) 2 Mg/Ml Vial IV PUSH Q6H PRN Anxiety Losartan Potassium 50 mg 05/12/20 09:00 05/13/20 08:01 Losartan Potassium 50 Mg Tablet PO 50 mg EDDA
--- NOTE | 2020-05-13 12:23 | PM.DS ---
DS: Admitting Diagnosis Admitting Diagnosis Admitting Diagnosis: Scrotal cellulitis DS: Discharge Diagnosis Discharge Diagnosis (1) Sepsis: Code(s): A41.9 - Sepsis, unspecified organism Status: Acute Assessment and Plan: Scrotal cellulitis as source and meeting SIRS criteria with leukocytosis, tachycardia. Continue current treatment for cellulitis of scrotum. See below (2) Cellulitis of scrotum: Code(s): N49.2 - Inflammatory disorders of scrotum Status: Acute Assessment and Plan: As per, antibiotic stewardship, patient started on Imipenem and Vancomycin. Dr. Ochoa consulted; POD 1 I&D of scrotal abscess. Discussed with PATTI Barger for Urology and anjana for discharge from their standpoint with follow up next week. BCx shows NGTD x 2 after 2 days. WCx growing group B strep. WBC downtrending to 13.7k. No evidence of Rita gangrene Imipenem and vancomycin during stay; switched to PO Augmentin today. Will continue this x 10 days F/u with Urology in 1 week F/u with PCP as well CBC in 1 week Appreciate Urology recommendations (3) Abscess of skin or subcutaneous tissue: Qualifiers: Site of cutaneous abscess: other site Qualified Code(s): L02.818 - Cutaneous abscess of other sites Code(s): L02.91 - Cutaneous abscess, unspecified Status: Inactive Assessment and Plan: POD1 I&D per Dr. Ochoa. See above a/p (4) Hyperlipidemia: Code(s): E78.5 - Hyperlipidemia, unspecified Status: Chronic Assessment and Plan: Patient refuses to take any medication for cholesterol. Diet and exercise recommended. Follow up with PCP (5) HTN (hypertension): Code(s): I10 - Essential (primary) hypertension Status: Chronic Assessment and Plan: BP reviewed and stable at 130s sys this morning. continue home antihypertensives F/u with PCP (6) Diabetes mellitus: Qualifiers: Diabetes mellitus complication detail: with other skin complication Diabetes mellitus complication status: with skin complications Diabetes mellitus superintendent container terminal insulin use: without fci use Diabetes mellitus type: type 2 Qualified Code(s): E11.628 - Type 2 diabetes mellitus with other skin complications Code(s): E11.9 - Type 2 diabetes mellitus without complications Status: Chronic Assessment and Plan: A1c 9.1. BGL high 100s-low 200s today. He stated he has not been taking his medication recently as he has been sick Accuchecks ACHS, hypoglycemia protocol, correctional insulin, diabetic diet during stay Resume metformin and Ozempic at discharge Will need follow up with PCP for further management given elevated A1c (7) Tobacco abuse: Code(s): Z72.0 - Tobacco use Status: Acute Assessment and Plan: Nicotine patch offered but declined at this time. Smoking cessation education. We discussed smoking cessation for at least 4 minutes (8) Obstructive sleep apnea: Code(s): G47.33 - Obstructive sleep apnea (adult) (pediatric) Status: Acute Assessment and Plan: CPAP overnight if he does not refuse DS: Summary Hospital Course Reason for hospitalization: Scrotal Cellulitis with abscess, sepsis Hospital Course: Patient is a 60 yo M with history of DM, HTN, HLD, and LISA who presented to the on 05/11 with complaints of scrotal pain, redness and swelling for 3 days. Patient sent to ED for further evaluation. Patient was febrile and tachycardic with leukocytosis, meeting SIRS criteria and technically septic with scrotal cellulitis as source of infection. In ED, CT scan of pelvis shows nonspecific edema in scr
--- NOTE | 2020-05-15 17:04 | PC.NURSE ---
Patient called to inquire about foul, greenish colored discharge from incision site. Instructed to either call after hours line for Dr. Ochoa or to return ED for evaluation. Patient's spouse concerned that she isn't getting the packing in enough to prevent infection. Patient states he will first call the urologist after hours line and if unsuccessful then proceed to the ED.
--- NOTE | 2020-05-15 19:22 | PC.NURSE ---
Patient called to follow up from first phone call r/t site of I&D earlier today. Patient spoke to Dr. Ochoa, who indicated that patient should schedule a follow up appointment sooner than already scheduled. Patient states he will call tomorrow morning to schedule appointment.
== END 2020-05-13 14:52 | disposition home or self-care (01) | DRG 872 ==
LOC: ANHED 18:48 → ANH3MED 22:12
PROVIDERS: Nurse Practitioner; Physician Assistant; Urology; Admitting Provider Family Medicine; Emergency Provider Emergency Medicine; PCP Emergency Medicine; Visit Provider Physician Assistant
PROC: 0V950ZX Drainage of Scrotum, Open Approach, Diagnostic (ICD-10-PCS; CPT 54700; principal; 2020-05-12 09:20)
DX: A40.1 Sepsis due to streptococcus, group B (principal); L02.818 Cutaneous abscess of other sites; Z68.41 Body mass index [BMI] 40.0-44.9, adult; K43.6 Other and unspecified ventral hernia with obstruction, without gangrene; E11.628 Type 2 diabetes mellitus with other skin complications; N49.2 Inflammatory disorders of scrotum; B95.1 Streptococcus, group B, as the cause of diseases classified elsewhere; E66.01 Morbid (severe) obesity due to excess calories; E78.5 Hyperlipidemia, unspecified; E11.59 Type 2 diabetes mellitus with other circulatory complications; G47.33 Obstructive sleep apnea (adult) (pediatric); F17.210 Nicotine dependence, cigarettes, uncomplicated; K57.90 Diverticulosis of intestine, part unspecified, without perforation or abscess without bleeding; Z90.49 Acquired absence of other specified parts of digestive tract
CPT/HCPCS: 36415; 72193; 80053; 80202; 81001; 82728; 83036; 83605; 83735; 85025; 85610; 85730; 86140; 87040; 87070; 87075; 87147; 87205; 96374; 99285; A9270; J0131; J0743; J1815; J2405; J2704; J3010; J3370; J7030; J7060; J7120; Q9967

== ENCOUNTER 2020-06-13 07:07 | Outpatient (CLI) | payer OTHER, SELFPAY ==
[2020-06-13 07:56] LABS: Alanine Aminotransferase 23 U/L (4-50); Albumin Level 3.9 g/dL (3.5-5.1); Alkaline Phosphatase 114 U/L (38-126); Anion Gap 9 mmol/L (8-16); Aspartate Amino Transferase 19 U/L (17-59); Bilirubin,Total 0.2 mg/dL (0.2-1.3); Blood Urea Nitrogen 14 mg/dL (9-20); Calcium 9.1 mg/dL (8.4-10.2); Carbon Dioxide 23 mmol/L (22-30); Chloride 104 mmol/L (98-107); Cholesterol 236 mg/dL (0-200); Estimated Glomerular Filt Rate > 60; Glucose 184 mg/dL (75-110); Sodium 136 mmol/L (137-145)
[2020-06-13 08:06] LABS: Triglycerides 782 mg/dL (<150)
[2020-06-13 08:17] LABS: Hemoglobin A1C 8.8 % (<5.7)
[2020-06-13 08:26] LABS: LDL Cholesterol Direct 110 mg/dL
[2020-06-13 08:37] LABS: MALB Creatinine Ratio < 14.6 mg/g (0-30); Microalbumin Urine Random < 6.0 mg/L (0-16.7)
== END 2020-06-13 07:08 | disposition home or self-care (01) ==
PROVIDERS: PCP Emergency Medicine; Visit Provider Emergency Medicine
DX: E11.628 Type 2 diabetes mellitus with other skin complications (principal); E78.5 Hyperlipidemia, unspecified; E11.9 Type 2 diabetes mellitus without complications
CPT/HCPCS: 36415; 80053; 80061; 82043; 83036

== ENCOUNTER 2020-10-19 07:19 | Outpatient (CLI) | payer OTHER, SELFPAY ==
[2020-10-19 07:57] LABS: Alanine Aminotransferase 23 U/L (4-50); Alkaline Phosphatase 113 U/L (38-126); Anion Gap 5 mmol/L (8-16); Aspartate Amino Transferase 20 U/L (17-59); Bilirubin,Total 0.3 mg/dL (0.2-1.3); Blood Urea Nitrogen 14 mg/dL (9-20); Calcium 8.8 mg/dL (8.4-10.2); Carbon Dioxide 27 mmol/L (22-30); Chloride 106 mmol/L (98-107); Cholesterol 204 mg/dL (0-200); Estimated Glomerular Filt Rate > 60; Glucose 148 mg/dL (75-110); HDL Direct 25 mg/dL; Potassium 4.9 mmol/L (3.4-5.0); Sodium 138 mmol/L (137-145)
[2020-10-19 08:07] LABS: LDL Cholesterol Direct 97 mg/dL
[2020-10-19 08:23] LABS: Triglycerides 564 mg/dL (<150)
[2020-10-19 08:45] LABS: Creatinine Urine 53.2 mg/dL
[2020-10-19 08:58] LABS: MALB Creatinine Ratio < 11.3 mg/g (0-30); Microalbumin Urine Random < 6.0 mg/L (0-16.7)
== END 2020-10-19 07:20 | disposition home or self-care (01) ==
LOC: ANHLAB 07:21
PROVIDERS: PCP Emergency Medicine; Visit Provider Emergency Medicine
DX: E78.5 Hyperlipidemia, unspecified (principal); E11.628 Type 2 diabetes mellitus with other skin complications; I10 Essential (primary) hypertension
CPT/HCPCS: 36415; 80053; 80061; 82043; 83036

== ENCOUNTER 2021-01-25 09:33 | Outpatient (CLI) | payer OTHER, SELFPAY ==
[2021-01-25 10:13] LABS: Hemoglobin A1C 8.6 % (<5.7)
[2021-01-25 10:16] LABS: LDL Cholesterol Direct 86 mg/dL
[2021-01-25 11:05] LABS: Alanine Aminotransferase 27 U/L (4-50); Albumin Level 4.3 g/dL (3.5-5.1); Alkaline Phosphatase 116 U/L (38-126); Anion Gap 9 mmol/L (8-16); Aspartate Amino Transferase 28 U/L (17-59); Bilirubin,Total 0.2 mg/dL (0.2-1.3); Blood Urea Nitrogen 14 mg/dL (9-20); Calcium 9.4 mg/dL (8.4-10.2); Carbon Dioxide 25 mmol/L (22-30); Chloride 106 mmol/L (98-107); Cholesterol 235 mg/dL (0-200); Estimated Glomerular Filt Rate > 60; Glucose 146 mg/dL (75-110); Potassium 4.3 mmol/L (3.4-5.0); Sodium 140 mmol/L (137-145)
[2021-01-25 11:16] LABS: Triglycerides 700 mg/dL (<150)
[2021-01-25 13:14] LABS: Creatinine Urine 24.8 mg/dL
[2021-01-25 13:58] LABS: MALB Creatinine Ratio < 24.2 mg/g (0-30); Microalbumin Urine Random < 6.0 mg/L (0-16.7)
== END 2021-01-25 09:34 | disposition home or self-care (01) ==
PROVIDERS: PCP Emergency Medicine; Visit Provider Emergency Medicine
DX: E11.9 Type 2 diabetes mellitus without complications (principal); E78.5 Hyperlipidemia, unspecified
CPT/HCPCS: 36415; 80053; 80061; 82043; 83036

== ENCOUNTER 2021-05-19 07:31 | Outpatient (CLI) | payer OTHER, SELFPAY ==
[2021-05-19 08:23] LABS: Alanine Aminotransferase 23 U/L (4-50); Albumin Level 4.1 g/dL (3.5-5.1); Alkaline Phosphatase 106 U/L (38-126); Anion Gap 6 mmol/L (8-16); Aspartate Amino Transferase 20 U/L (17-59); Bilirubin,Total 0.3 mg/dL (0.2-1.3); Blood Urea Nitrogen 13 mg/dL (9-20); Calcium 8.9 mg/dL (8.4-10.2); Carbon Dioxide 27 mmol/L (22-30); Chloride 107 mmol/L (98-107); Cholesterol 234 mg/dL (0-200); Estimated Glomerular Filt Rate > 60; Glucose 178 mg/dL (65-110); Potassium 4.7 mmol/L (3.4-5.0); Sodium 140 mmol/L (137-145)
[2021-05-19 08:24] LABS: LDL Cholesterol Direct 95 mg/dL
[2021-05-19 08:40] LABS: MALB Creatinine Ratio 8.5 mg/g (0-30); Microalbumin Urine Random 7.3 mg/L (0-16.7)
[2021-05-19 11:01] LABS: Triglycerides 748 mg/dL (<150)
== END 2021-05-19 07:32 | disposition home or self-care (01) ==
PROVIDERS: PCP Emergency Medicine; Visit Provider Emergency Medicine
DX: E78.5 Hyperlipidemia, unspecified (principal); I10 Essential (primary) hypertension; E11.628 Type 2 diabetes mellitus with other skin complications
CPT/HCPCS: 36415; 80053; 80061; 82043; 83036

== ENCOUNTER 2021-12-01 08:45 | Outpatient (CLI) | payer OTHER, SELFPAY ==
[2021-12-01 09:48] LABS: Hemoglobin A1C 10.1 % (<5.7)
[2021-12-01 09:57] LABS: LDL Cholesterol Direct 84 mg/dL
[2021-12-01 10:10] LABS: Prostate Specific Antigen 0.2 ng/mL (< OR = 4.0)
[2021-12-01 10:11] LABS: Alanine Aminotransferase 20 U/L (4-50); Albumin Level 4.2 g/dL (3.5-5.1); Alkaline Phosphatase 140 U/L (38-126); Anion Gap 8 mmol/L (8-16); Aspartate Amino Transferase 22 U/L (17-59); Bilirubin,Total 0.4 mg/dL (0.2-1.3); Blood Urea Nitrogen 16 mg/dL (9-20); Calcium 8.7 mg/dL (8.4-10.2); Carbon Dioxide 16 mmol/L (22-30); Chloride 107 mmol/L (98-107); Cholesterol 258 mg/dL (0-200); Estimated Glomerular Filt Rate > 60; Glucose 307 mg/dL (65-110); Potassium 4.3 mmol/L (3.4-5.0); Sodium 131 mmol/L (137-145)
[2021-12-01 10:42] LABS: Triglycerides 1195 mg/dL (<150)
[2021-12-01 13:35] LABS: Creatinine Urine 126.4 mg/dL
[2021-12-01 13:36] LABS: MALB Creatinine Ratio 18.9 mg/g (0-30); Microalbumin Urine Random 23.9 mg/L (0-16.7)
== END 2021-12-01 08:46 | disposition home or self-care (01) ==
LOC: ANHLAB 08:48
PROVIDERS: PCP Emergency Medicine; Visit Provider Emergency Medicine
DX: E78.5 Hyperlipidemia, unspecified (principal); I10 Essential (primary) hypertension; E11.628 Type 2 diabetes mellitus with other skin complications; Z12.5 Encounter for screening for malignant neoplasm of prostate
CPT/HCPCS: 36415; 80053; 80061; 82043; 83036; 84153; G0103

== ENCOUNTER 2022-04-13 08:32 | Outpatient (CLI) | payer OTHER, SELFPAY ==
[2022-04-13 09:39] LABS: Creatinine Urine 102.5 mg/dL
[2022-04-13 09:43] LABS: LDL Cholesterol Direct 81 mg/dL
[2022-04-13 09:45] LABS: MALB Creatinine Ratio 13.9 mg/g (0-30); Microalbumin Urine Random 14.2 mg/L (0-16.7)
[2022-04-13 09:59] LABS: Alanine Aminotransferase 23 U/L (6-50); Albumin Level 3.7 g/dL (3.5-5.1); Alkaline Phosphatase 116 U/L (38-126); Anion Gap 9 mmol/L (8-16); Aspartate Amino Transferase 19 U/L (17-59); Bilirubin,Total 0.3 mg/dL (0.2-1.3); Blood Urea Nitrogen 15 mg/dL (9-20); Calcium 9.1 mg/dL (8.4-10.2); Carbon Dioxide 21 mmol/L (22-30); Chloride 106 mmol/L (98-107); Cholesterol 234 mg/dL (0-200); Estimated Glomerular Filt Rate > 60; Glucose 168 mg/dL (65-110); HDL Direct 26 mg/dL; Sodium 136 mmol/L (137-145)
[2022-04-13 10:02] LABS: Triglycerides 797 mg/dL (<150)
== END 2022-04-13 08:33 | disposition home or self-care (01) ==
LOC: ANHLAB 08:35
PROVIDERS: PCP Emergency Medicine; Visit Provider Emergency Medicine
DX: I10 Essential (primary) hypertension (principal); E78.5 Hyperlipidemia, unspecified; E11.628 Type 2 diabetes mellitus with other skin complications
CPT/HCPCS: 36415; 80053; 80061; 82043; 83036

== ENCOUNTER 2022-08-17 08:33 | Outpatient (CLI) | payer OTHER, SELFPAY ==
[2022-08-17 09:29] LABS: Alanine Aminotransferase 25 U/L (6-50); Albumin Level 3.9 g/dL (3.5-5.1); Alkaline Phosphatase 129 U/L (38-126); Anion Gap 8 mmol/L (8-16); Aspartate Amino Transferase 19 U/L (17-59); Bilirubin,Total 0.3 mg/dL (0.2-1.3); Blood Urea Nitrogen 21 mg/dL (9-20); Calcium 8.6 mg/dL (8.4-10.2); Carbon Dioxide 22 mmol/L (22-30); Chloride 101 mmol/L (98-107); Cholesterol 272 mg/dL (0-200); Estimated Glomerular Filt Rate > 60; Glucose 320 mg/dL (65-110); Potassium 4.1 mmol/L (3.4-5.0); Sodium 131 mmol/L (137-145)
[2022-08-17 09:35] LABS: Creatinine Urine 75.8 mg/dL
[2022-08-17 09:36] LABS: MALB Creatinine Ratio 18.6 mg/g (0-30); Microalbumin Urine Random 14.1 mg/L (0-16.7)
[2022-08-17 09:37] LABS: LDL Cholesterol Direct 67 mg/dL
[2022-08-17 09:42] LABS: Triglycerides 1399 mg/dL (<150)
[2022-08-17 10:46] LABS: Hemoglobin A1C 11.3 % (<5.7)
== END 2022-08-17 08:34 | disposition home or self-care (01) ==
LOC: ANHLAB 08:35
PROVIDERS: PCP Emergency Medicine; Visit Provider Emergency Medicine
DX: E78.5 Hyperlipidemia, unspecified (principal)
CPT/HCPCS: 36415; 80053; 80061; 82043; 83036

== ENCOUNTER 2022-12-19 11:12 | Outpatient (CLI) | payer OTHER, SELFPAY ==
[2022-12-19 11:34] LABS: Hemoglobin A1C 8.7 % (<5.7)
[2022-12-19 11:40] LABS: Alanine Aminotransferase 24 U/L (6-50); Albumin Level 4.3 g/dL (3.5-5.1); Alkaline Phosphatase 100 U/L (38-126); Anion Gap 9 mmol/L (8-16); Aspartate Amino Transferase 22 U/L (17-59); Bilirubin,Total 0.6 mg/dL (0.2-1.3); Blood Urea Nitrogen 10 mg/dL (9-20); Calcium 8.6 mg/dL (8.4-10.2); Carbon Dioxide 24 mmol/L (22-30); Chloride 103 mmol/L (98-107); Cholesterol 199 mg/dL (0-200); Estimated Glomerular Filt Rate > 60; Glucose 110 mg/dL (65-110); HDL Direct 28 mg/dL; Potassium 4.1 mmol/L (3.4-5.0); Sodium 136 mmol/L (137-145); Triglycerides 462 mg/dL (<150)
[2022-12-19 11:51] LABS: LDL Cholesterol Direct 112 mg/dL
== END 2022-12-19 11:13 | disposition home or self-care (01) ==
LOC: ANHLAB 11:15
PROVIDERS: PCP Emergency Medicine; Visit Provider Emergency Medicine
DX: E11.9 Type 2 diabetes mellitus without complications (principal); I10 Essential (primary) hypertension
CPT/HCPCS: 36415; 80053; 80061; 83036

== ENCOUNTER 2023-05-01 11:01 | Outpatient (CLI) | payer OTHER, SELFPAY ==
[2023-05-01 11:32] LABS: Alanine Aminotransferase 16 U/L (6-50); Albumin Level 4.2 g/dL (3.5-5.1); Alkaline Phosphatase 116 U/L (38-126); Anion Gap 8 mmol/L (8-16); Aspartate Amino Transferase 16 U/L (17-59); Bilirubin,Total 0.4 mg/dL (0.2-1.3); Blood Urea Nitrogen 16 mg/dL (9-20); Carbon Dioxide 22 mmol/L (22-30); Chloride 104 mmol/L (98-107); Cholesterol 219 mg/dL (0-200); Estimated Glomerular Filt Rate > 60; Glucose 110 mg/dL (65-110); HDL Direct 30 mg/dL; Potassium 3.9 mmol/L (3.4-5.0); Sodium 134 mmol/L (137-145); Triglycerides 510 mg/dL (<150)
[2023-05-01 11:39] LABS: Hemoglobin A1C 7.6 % (<5.7)
[2023-05-01 11:42] LABS: LDL Cholesterol Direct 117 mg/dL
[2023-05-03 16:17] LABS: Prostate Specific Antigen 0.4 ng/mL (< OR = 4.0)
[2023-05-05 15:46] LABS: Vitamin D 1,25 (OH)2 Total 35 pg/mL (18-72); Vitamin D2 1,25 (OH)2 <8 pg/mL; Vitamin D3 1,25 (OH)2 35 pg/mL
== END 2023-05-01 11:02 | disposition home or self-care (01) ==
LOC: ANHLAB 11:03
PROVIDERS: PCP Emergency Medicine; Visit Provider Emergency Medicine
DX: E55.9 Vitamin D deficiency, unspecified (principal); E11.9 Type 2 diabetes mellitus without complications; E78.5 Hyperlipidemia, unspecified; Z12.5 Encounter for screening for malignant neoplasm of prostate
CPT/HCPCS: 36415; 80053; 80061; 82652; 83036; 84153; G0103

== ENCOUNTER 2024-01-10 11:34 | Outpatient (CLI) | payer OTHER, SELFPAY ==
[2024-01-10 13:01] LABS: LDL Cholesterol Direct 98 mg/dL
[2024-01-10 13:05] LABS: Alanine Aminotransferase 20 U/L (6-50); Albumin Level 4.3 g/dL (3.5-5.1); Alkaline Phosphatase 102 U/L (38-126); Anion Gap 6 mmol/L (4-12); Aspartate Amino Transferase 18 U/L (17-59); Bilirubin,Total 0.4 mg/dL (0.2-1.3); Blood Urea Nitrogen 17 mg/dL (9-20); Calcium 9.2 mg/dL (8.4-10.2); Carbon Dioxide 24 mmol/L (22-30); Chloride 107 mmol/L (98-107); Cholesterol 237 mg/dL (0-200); Estimated Glomerular Filt Rate > 60; Glucose 123 mg/dL (65-110); HDL Direct 29 mg/dL; Sodium 137 mmol/L (137-145)
[2024-01-10 13:06] LABS: Creatinine Urine 80.8 mg/dL
[2024-01-10 13:07] LABS: Vitamin D 25 Hydroxy 32.2 ng/mL
[2024-01-10 13:10] LABS: Microalbumin Urine Random < 6.0 mg/L (0-16.7)
[2024-01-10 13:11] LABS: MALB Creatinine Ratio < 7.4 mg/g (0-30)
[2024-01-10 18:34] LABS: Triglycerides 724 mg/dL (<150)
== END 2024-01-10 11:35 | disposition home or self-care (01) ==
LOC: ANHLAB 11:36
PROVIDERS: PCP Emergency Medicine; Visit Provider Emergency Medicine
DX: E55.9 Vitamin D deficiency, unspecified (principal); E78.5 Hyperlipidemia, unspecified; E11.9 Type 2 diabetes mellitus without complications; I10 Essential (primary) hypertension
CPT/HCPCS: 36415; 80053; 80061; 82043; 82306; 83036

== ENCOUNTER 2024-03-17 10:11 | Outpatient (CLI) | payer OTHER, SELFPAY ==
--- NOTE | ~2024-03-17 | XR_ITS ---
XR shoulder LT min 2V Ordering provider: Jamil Garsia MD History: . M25.512 - Pain in left shoulder . Comparison: None. FINDINGS: BONES: No acute fracture or dislocation. JOINT SPACES: The acromioclavicular joint is normal. The glenohumeral joint is normal. SOFT TISSUES: Normal. IMPRESSION: No acute osseous abnormality left shoulder. Reviewed, dictated and finalized at location A.
== END 2024-03-17 10:12 ==
PROVIDERS: PCP Emergency Medicine; Visit Provider Emergency Medicine
DX: M25.512 Pain in left shoulder (principal)
CPT/HCPCS: 73030

== ENCOUNTER 2024-05-13 09:38 | Outpatient (CLI) | payer OTHER, SELFPAY ==
[2024-05-13 10:28] LABS: Creatinine Urine 75.9 mg/dL
[2024-05-13 10:33] LABS: Hemoglobin A1C 11.2 % (<5.7)
[2024-05-13 10:55] LABS: Alanine Aminotransferase 18 U/L (6-50); Alkaline Phosphatase 87 U/L (38-126); Anion Gap 8 mmol/L (4-12); Aspartate Amino Transferase 21 U/L (17-59); Bilirubin,Total 0.5 mg/dL (0.2-1.3); Blood Urea Nitrogen 13 mg/dL (9-20); Carbon Dioxide 22 mmol/L (22-30); Chloride 103 mmol/L (98-107); Cholesterol 179 mg/dL (0-200); Estimated Glomerular Filt Rate > 60; Glucose 197 mg/dL (65-110); HDL Direct 33 mg/dL; Potassium 4.3 mmol/L (3.4-5.0); Sodium 133 mmol/L (137-145); Triglycerides 338 mg/dL (<150)
[2024-05-13 11:04] LABS: Vitamin D 25 Hydroxy 33.8 ng/mL
[2024-05-13 11:05] LABS: LDL Cholesterol Direct 89 mg/dL
[2024-05-13 11:15] LABS: MALB Creatinine Ratio < 7.9 mg/g (0-30); Microalbumin Urine Random < 6.0 mg/L (0-16.7)
[2024-05-13 11:57] LABS: Prostate Specific Antigen 0.2 ng/mL (< OR = 4.0)
== END 2024-05-13 09:39 | disposition home or self-care (01) ==
LOC: ANHLAB 09:39
PROVIDERS: PCP Emergency Medicine; Visit Provider Emergency Medicine
DX: E78.5 Hyperlipidemia, unspecified (principal); I10 Essential (primary) hypertension; E11.9 Type 2 diabetes mellitus without complications; Z12.5 Encounter for screening for malignant neoplasm of prostate; E55.9 Vitamin D deficiency, unspecified
CPT/HCPCS: 36415; 80053; 80061; 82043; 82306; 83036; 84153; G0103

== ENCOUNTER 2024-08-19 09:51 | Outpatient (CLI) | payer OTHER, SELFPAY ==
[2024-08-19 10:38] LABS: Alanine Aminotransferase 19 U/L (6-50); Albumin Level 4.1 g/dL (3.5-5.1); Alkaline Phosphatase 101 U/L (38-126); Anion Gap 5 mmol/L (4-12); Aspartate Amino Transferase 17 U/L (17-59); Bilirubin,Total 0.4 mg/dL (0.2-1.3); Blood Urea Nitrogen 13 mg/dL (9-20); Calcium 9.4 mg/dL (8.4-10.2); Carbon Dioxide 27 mmol/L (22-30); Chloride 104 mmol/L (98-107); Cholesterol 156 mg/dL (0-200); Estimated Glomerular Filt Rate > 60; Glucose 137 mg/dL (65-110); HDL Direct 28 mg/dL; Potassium 4.3 mmol/L (3.4-5.0); Sodium 136 mmol/L (137-145); Triglycerides 286 mg/dL (<150)
[2024-08-19 10:47] LABS: Hemoglobin A1C 8.9 % (<5.7)
[2024-08-19 10:49] LABS: LDL Cholesterol Direct 88 mg/dL
[2024-08-19 11:40] LABS: Creatinine Urine 29.9 mg/dL
[2024-08-19 11:50] LABS: MALB Creatinine Ratio < 20.1 mg/g (0-30); Microalbumin Urine Random < 6.0 mg/L (0-16.7)
== END 2024-08-19 09:52 | disposition home or self-care (01) ==
LOC: ANHLAB 09:51
PROVIDERS: PCP Emergency Medicine; Visit Provider Emergency Medicine
DX: E78.5 Hyperlipidemia, unspecified (principal); E11.9 Type 2 diabetes mellitus without complications
CPT/HCPCS: 36415; 80053; 80061; 82043; 83036

== ENCOUNTER 2024-11-11 09:09 | Outpatient (CLI) | payer OTHER, SELFPAY ==
[2024-11-11 09:44] LABS: Alanine Aminotransferase 21 U/L (6-50); Albumin Level 4.2 g/dL (3.5-5.1); Alkaline Phosphatase 108 U/L (38-126); Anion Gap 9 mmol/L (4-12); Aspartate Amino Transferase 18 U/L (17-59); Bilirubin,Total 0.5 mg/dL (0.2-1.3); Blood Urea Nitrogen 16 mg/dL (9-20); Calcium 8.9 mg/dL (8.4-10.2); Carbon Dioxide 22 mmol/L (22-30); Chloride 104 mmol/L (98-107); Cholesterol 209 mg/dL (0-200); Estimated Glomerular Filt Rate > 60; Glucose 144 mg/dL (65-110); HDL Direct 28 mg/dL; Potassium 4.2 mmol/L (3.4-5.0); Sodium 135 mmol/L (137-145); Triglycerides 400 mg/dL (<150)
[2024-11-11 09:49] LABS: Hemoglobin A1C 8.5 % (<5.7)
[2024-11-11 09:56] LABS: LDL Cholesterol Direct 110 mg/dL
[2024-11-11 10:34] LABS: Creatinine Urine 71.4 mg/dL
[2024-11-11 10:37] LABS: MALB Creatinine Ratio 11.5 mg/g (0-30); Microalbumin Urine Random 8.2 mg/L (0-16.7)
[2024-11-11 10:49] LABS: Vitamin D 25 Hydroxy 35.2 ng/mL
== END 2024-11-11 09:10 | disposition home or self-care (01) ==
PROVIDERS: PCP Emergency Medicine; Visit Provider Emergency Medicine
DX: E78.5 Hyperlipidemia, unspecified (principal); E11.9 Type 2 diabetes mellitus without complications; E55.9 Vitamin D deficiency, unspecified
CPT/HCPCS: 36415; 80053; 80061; 82043; 82306; 83036